=== PATIENT | male | born 1985 | race Caucasian/White ===

== ENCOUNTER 2019-02-07 03:59 | Emergency (ER) | payer MEDICAID ==
[~2019-02-07] VITALS: Ht 185.4 cm; Wt 84.0 kg
[2019-02-07] MEDS ORDERED: AMOXICILLIN/POTASSIUM CLAVULANATE 875/125MG TAB PO ONE (05:00)
[2019-02-07] MEDS ORDERED: DEXAMETHASONE 4MG TABLET PO ONE (05:00)
[2019-02-07 05:34] VITALS: BP 124/61
== END 2019-02-07 05:41 | disposition home or self-care (01) ==
LOC: ER 04:17
DX: K04.7 Periapical abscess without sinus (principal); F14.10 Cocaine abuse, uncomplicated
CPT/HCPCS: 99283; J8540

== ENCOUNTER 2019-02-09 01:48 | Emergency (ER) | payer MEDICAID ==
[~2019-02-09] VITALS: Ht 185.4 cm; Wt 84.0 kg
[2019-02-09] MEDS ORDERED: KETOROLAC 30MG/ML VIAL IV STA (04:29)
[2019-02-09] MEDS ORDERED: CLINDAMYCIN 900 MG in DEXTROSE 5% WATER 50 ML IV ONE (04:30)
[2019-02-09] MEDS ORDERED: CLINDAMYCIN 900 MG PREMIX 50 ML IV SCH (05:00)
[2019-02-09 06:06] VITALS: BP 111/66
== END 2019-02-09 06:07 | disposition home or self-care (01) ==
LOC: ER 01:48
DX: K04.7 Periapical abscess without sinus (principal); F14.10 Cocaine abuse, uncomplicated
CPT/HCPCS: 96365; 96375; 99283; J1885; J3490; Z7610; J7060

== ENCOUNTER 2019-09-28 18:23 | Emergency (ER) | payer SELFPAY ==
[~2019-09-28] VITALS: Ht 185.4 cm; Wt 83.9 kg
[2019-09-28 18:27] VITALS: BP 123/68
[2019-09-28] MEDS ORDERED: MECLIZINE 25MG TABLET PO ONE (19:45)
== END 2019-09-28 22:01 | disposition home or self-care (01) ==
LOC: ER 18:23
DX: R55 Syncope and collapse (principal); F14.10 Cocaine abuse, uncomplicated; Z98.890 Other specified postprocedural states
CPT/HCPCS: 93005; 99283; J8597